=== PATIENT | female | born 1990 | race Caucasian/White ===

== ENCOUNTER 2018-08-30 16:27 | Emergency (ER) | payer SELFPAY ==
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
[2018-08-30] MEDS ORDERED: Iopamidol 755 MG/ML 500 ML Multipack Bottle IVPUSH STA (17:32)
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
== END 2018-08-30 18:59 | disposition home or self-care (01) ==
LOC: MW.ED 16:27
DX: R10.30 Lower abdominal pain, unspecified (principal); Z90.49 Acquired absence of other specified parts of digestive tract
CPT/HCPCS: 71260; 74177; 81003; 81025; 99284; Q9967; 99283

== ENCOUNTER 2019-01-05 13:23 | Emergency (ER) | payer BC ==
--- NOTE | 2019-01-05 13:51 | EDM.PDOC ---
ED HPI GENERAL MEDICAL PROBLEM - General Chief Complaint: Respiratory Problem Stated Complaint: COUGH Time Seen by Provider: 01/05/19 13:47 Source of Information: Reports: Patient History Limitations: Reports: No Limitations - History of Present Illness INITIAL COMMENTS - FREE TEXT/NARRATIVE: HISTORY AND PHYSICAL: History of present illness: Patient is a 28-year-old female presents to the ED with complaint of cough and congestion x weeks. She denies fevers, chills, nausea, vomiting abdominal pain. No history of astham and no smoking history. States she gets sinus infections often and is having sinus pressure. Review of systems: As per history of present illness and below otherwise all systems reviewed and negative. Past medical history: As per history of present illness and as reviewed below otherwise noncontributory. Surgical history: As per history of present illness and as reviewed below otherwise noncontributory. Social history: No reported history of drug or alcohol abuse. Family history: As per history of present illness and as reviewed below otherwise noncontributory. Physical exam: General: Patient sitting comfortably in no acute distress and nontoxic appearing HEENT: TMs clear bilaterally. Bilateral maxillary sinus tenderness to palpation. Atraumatic, normocephalic, pupils reactive, negative for conjunctival pallor or scleral icterus, mucous membranes moist, throat clear, neck supple, nontender, trachea midline. No meningeal signs. Lungs: Clear to auscultation, breath sounds equal bilaterally, chest nontender. Heart: S1S2, regular, negative for clicks, rubs, or overt murmur. Abdomen: Soft, nondistended, nontender. Negative for masses or hepatosplenomegaly. Negative for costovertebral tenderness. No rigidity, rebound , guarding. Pelvis: Stable nontender. Genitourinary: Deferred. Rectal: Deferred. Extremities: Atraumatic, negative for cords or calf pain. Neurovascular unremarkable. Neuro: Awake, alert, oriented. Cranial nerves II through XII unremarkable. Cerebellum unremarkable. Motor and sensory unremarkable throughout. Exam nonfocal. Notes: Diagnostics: declined CXR Therapeutics: [] Prescriptions: Augmentin Ventolin inhaler Impression: Acute sinusitis, acute bronchitis Plan: Take antibiotic and use inhaler as instructed Follow up with primary care provider Return to ED as needed as discussed Definitive disposition and diagnosis as appropriate pending reevaluation and review of above. - Related Data Allergies Allergy/AdvReac Type Severity Reaction Status Date / Time No Known Allergies Allergy Verified 01/05/19 13:42 Home Meds: Home Meds Albuterol [Ventolin HFA] 1 puff INH Q4H #1 inhaler 01/05/19 [Rx] Amoxicillin/Potassium Clav [Augmentin 875-125 Tablet] 1 each PO BID 7 Days #14 tablet 01/05/19 [Rx] Spironolactone [Aldactone] 25 mg PO DAILY 01/05/19 [History] Past Medical History - Past Health History Medical/Surgical History: Denies Medical/Surgical History - Infectious Disease History Infectious Disease History: Reports: Chicken Pox - Past Surgical History GI Surgical History: Reports: Appendectomy Social & Family History - Family History Family Medical History: Noncontributory - Tobacco Use Smoking Status *Q: Never Smoker - Recreational Drug Use Recreational Drug Use: No ED ROS GENERAL - Review of Systems Review Of Systems: Comprehensive ROS is negative, except as noted in HPI. ED EXAM, GENERAL - Physical Exam Exam: See Below (see dictation) Course - Vital Signs Last Recorded V/S: Last Vital Signs Temp 96.9 F 01/05/19 13:39 Pulse 94 01/05/19 13:39 Resp 18 01/05/19 13:39 BP 112/77 01/05/19 13:39 Pulse Ox 97 01/05/19 13:39 - Orders/Labs/Meds Orders: Active Orders 24 hr Category Date Time Status Chest 2V [CR] Stat Exams 01/05/19 13:42 Stop Req Departure - Departure Time of Disposition: 13:50 Disposition: Home, Self-Care 01 Condition: Good Clinical Impression: Acute sinusitis, Acute bronchitis - Discharge Information Prescriptions: Albuterol [Ventolin HFA] 1 puff INH Q4H #1 inhaler Amoxicillin/Potassium Clav [Augmentin 875-125 Tablet] 1 each PO BID 7 Days #14 tablet Referrals: PCP,None [Primary Care Provider] - Additional Instructions: The following information is given to patients seen in the emergency department who are being discharged to home. This information is to outline your options for follow-up care. We provide all patients seen in our emergency department with a follow-up referral. The need for follow-up, as well as the timing and circumstances, are variable depending upon the specifics of your emergency department visit. If you don't have a primary care physician on staff, we will provide you with a referral. We always advise you to contact your personal physician following an emergency department visit to inform them of the circumstance of the visit and for follow-up with them and/or the need for any referrals to a consulting specialist. The emergency department will also refer you to a specialist when appropriate. This referral assures that you have the opportunity for follow-up care with a specialist. All of these measure are taken in an effort to provide you with optimal care, which includes your follow-up. Under all circumstances we always encourage you to contact your private physician who remains a resource for coordinating your care. When calling for follow-up care, please make the office aware that this follow-up is from your recent emergency room visit. If for any reason you are refused follow-up, please contact the [facility] Emergency Department at and asked to speak to the emergency department charge nurse. [facility] [address] [place] [id number] [id number] Take antibiotic and use inhaler as instructed Follow up with primary care provider Return to ED as needed as discussed - My Orders Last 24 Hours: My Active Orders 01/05/19 13:42 Chest 2V [CR] Stat - Assessment/Plan Last 24 Hours: My Active Orders 01/05/19 13:42 Chest 2V [CR] Stat
== END 2019-01-05 14:12 | disposition home or self-care (01) ==
LOC: MW.ED 13:23
DX: J01.90 Acute sinusitis, unspecified (principal); J20.9 Acute bronchitis, unspecified
CPT/HCPCS: 99282; 99283-25